=== PATIENT | male | born 1990 | race American Indian/Alaskan Native ===

== ENCOUNTER 2022-01-13 15:29 | Emergency (ER) | payer BC ==
[2022-01-13] MEDS ORDERED: SODIUM CHLORIDE 0.9% 1000 ML 1,000 ML IV ONE (17:43)
[2022-01-13 17:45] VITALS: BP 137/92
--- NOTE | 2022-01-13 18:22 | XRay Report ---
CHEST 1 VIEW 01/13/2022 5:56 PM INDICATION / CLINICAL INFORMATION: Dyspnea. COMPARISON: None available. FINDINGS: SUPPORT DEVICES: None. HEART / MEDIASTINUM: No significant abnormality. LUNGS / PLEURA: No significant pulmonary or pleural abnormality. No pneumothorax. ADDITIONAL FINDINGS: No significant additional findings. IMPRESSION: 1. No acute findings. Signer Name: Dung Hernandez MD Signed: 01/13/2022 6:18 PM Workstation Name: [id number]
[2022-01-13 19:32] LABS: Basophils % (Auto) 0.3 % (0.0-1.8); Eosinophils # (Auto) 0.2 K/mm3 (0.0-0.4); Eosinophils % (Auto) 1.9 % (0.0-4.3); Hematocrit 42.7 % (35.5-45.6); Hemoglobin 14.1 gm/dl (11.8-15.2); Lymphocytes # (Auto) 2.6 K/mm3 (1.2-5.4); Lymphocytes % (Auto) 30.4 % (13.4-35.0); Mean Corpuscular HGB Conc 33 % (32-34); Mean Corpuscular Volume 86 fl (84-94); Monocytes # (Auto) 0.8 K/mm3 (0.0-0.8); Monocytes % (Auto) 9.3 % (0.0-7.3); Platelet Count 203 K/mm3 (140-440); Red Blood Count 4.94 M/mm3 (3.65-5.03); Red Cell Distribution Width 12.8 % (13.2-15.2)
[2022-01-13 19:38] LABS: Alanine Aminotransferase 19 units/L (7-56); Albumin 4.1 g/dL (3.9-5); BUN/Creatinine Ratio 11; Blood Urea Nitrogen 12 mg/dL (9-20); Calcium 9.2 mg/dL (8.4-10.2); Hemolysis Index 28
[2022-01-13 19:48] LABS: Bilirubin,Direct < 0.2 mg/dL (0-0.2)
--- NOTE | 2022-01-13 19:53 | Cat Scan Report ---
Examination: CT of the head without contrast Clinical information: Seizure Comparison: None. Technical: Multiple axial CT images of the head were obtained without intravenous contrast. Sagittal and coronal reformats were obtained. All CTs at this facility utilize dose reduction techniques inc luding automated exposure control, iterative reconstruction and weight based dosing when appropriate to reduce patient radiation dose to as low as reasonable achievable. Findings: INTRACRANIAL CONTENTS: There is no CT evidence of acute intracranial hemorrhage or large territorial infarct. The ventricular system is normal in size and configuration. SKULL: Evaluation of the skull demonstrates postsurgical changes of the left high convexity. No acute bony abnormality is identified. ORBITS: The bilateral orbits and globes appear normal PARANASAL SINUSES / MASTOID AIR CELLS: There is partial mucosal opacification of the maxillary and et hmoid sinuses. Impression: 1. No CT evidence of acute intracranial process. Signer Name: Lizbet Sandoval MD Signed: 01/13/2022 7:48 PM Workstation Name: [id number]
[2022-01-13 19:59] LABS: Bilirubin,Urine NEG (Negative); Blood,Urine NEG (Negative); Color,Urine Yellow (Yellow); Protein,Urine <15 mg/dL mg/dL (Negative); Urobilinogen,Urine < 2.0 mg/dL (<2.0)
--- NOTE | 2022-01-13 19:59 | Emergency Department Report ---
ED Seizure HPI - General Chief Complaint: Seizure Stated Complaint: COUGH/SEIZURES/HEADACHES Time Seen by Provider: 01/13/22 17:40 Source: patient, family Mode of arrival: Ambulatory Limitations: No Limitations - History of Present Illness Initial Comments: States had 2 sz during and after coughing at about 11:30 yesterday, and 0330 this a.m. , VARGAS all day. Complaint: possible seizure, shaking -: Sudden -: second(s) Seizure History: none Place: home Possible Precipitating Event: none Associated Symptoms: denies: denies other symptoms, chest pain, confusion, diaphoresis, fever/chills, loss of appetite, malaise Treatments Prior to Arrival: none - Related Data Home Medications Medication Instructions Recorded Confirmed Last Taken No Known Home Medications [No 01/13/22 01/13/22 Unknown Reported Home Medications] Allergies Allergy/AdvReac Type Severity Reaction Status Date / Time Penicillins Allergy Unknown Verified 01/13/22 17:19 ED Review of Systems ROS: Stated complaint: COUGH/SEIZURES/HEADACHES Other details as noted in HPI Constitutional: denies: chills, fever Eyes: denies: eye pain, eye discharge, vision change ENT: denies: ear pain, throat pain Respiratory: denies: cough, shortness of breath, wheezing Cardiovascular: denies: chest pain, palpitations Endocrine: no symptoms reported Gastrointestinal: denies: abdominal pain, nausea, diarrhea Genitourinary: denies: urgency, dysuria Musculoskeletal: denies: back pain, joint swelling, arthralgia Skin: denies: rash, lesions Neurological: denies: headache, weakness, paresthesias Psychiatric: denies: anxiety, depression Hematological/Lymphatic: denies: easy bleeding, easy bruising ED Past Medical Hx - Past Medical History Previous Medical History?: No Hx Hypertension: No Hx CVA: No - Social History Smoking Status: Unknown if ever smoked Substance Use Type: None - Medications Home Medications: Home Medications Medication Instructions Recorded Confirmed Last Taken Type No Known Home Medications [No 01/13/22 01/13/22 Unknown History Reported Home Medications] ED Physical Exam - General Limitations: No Limitations General appearance: alert, in no apparent distress - Head Head exam: Present: atraumatic, normocephalic - Eye Eye exam: Present: normal appearance - ENT ENT exam: Present: mucous membranes moist - Neck Neck exam: Present: normal inspection - Respiratory Respiratory exam: Present: normal lung sounds bilaterally. Absent: respiratory distress - Cardiovascular Cardiovascular Exam: Present: regular rate, normal rhythm. Absent: systolic murmur, diastolic murmur, rubs, gallop - GI/Abdominal GI/Abdominal exam: Present: soft, normal bowel sounds - Rectal Rectal exam: Present: deferred - Extremities Exam Extremities exam: Present: normal inspection - Back Exam Back exam: Present: normal inspection - Neurological Exam Neurological exam: Present: alert, oriented X3 - Psychiatric Psychiatric exam: Present: normal affect, normal mood - Skin Skin exam: Present: warm, dry, intact, normal color. Absent: rash ED Course Vital Signs 01/13/22 01/13/22 01/13/22 17:22 17:42 17:44 Temperature 98.4 F 98.7 F Pulse Rate 99 H 86 85 Respiratory 20 25 H 20 Rate Blood Pressure 137/92 Blood Pressure 139/98 [Right] O2 Sat by Pulse 96 99 97 Oximetry - Reevaluation(s) Reevaluation #1: 01/13/22 19:57 pt is awake and lert vss no distress, head ct normal doesn;t look like seizure ED Medical Decision Making - Lab Data Result diagrams: 01/13/22 18:39 01/13/22 18:39 Critical care attestation.: If time is entered above; I have spent that time in minutes in the direct care of this critically ill patient, excluding procedure time. ED Disposition Clinical Impression: Seizure Disposition: 01 HOME / SELF CARE / HOMELESS Is pt being admited?: No Does the pt Need Aspirin: No Condition: Stable Instructions: Seizure, Adult, [id number]
[2022-01-13 20:07] LABS: Amphetamine Screen,Urine Negative; Benzodiazepines Screen,Urine Negative; Cannabinoid Screen,Urine Negative; Cocaine Screen,Urine Negative; Methadone Screen,Urine Negative; Opiate Screen,Urine Negative
--- NOTE | 2022-01-15 11:48 | Electrocardiograph Report ---
[facility] Test Date: 2022-01-13 Test Time: 19:35:11 Pat Name: SHAKIRA LAMBERT Department: Room: Gender: M Jewel Sawyer: CRISTINO : 1990 Requested By: KENNY ONEIL Order Number: [id number] Reading MD: Mason Acosta Measurements Intervals [place] Rate: 84 P: 34 SC: 192 QRS: -27 QRSD: 80 T: 30 QT: 353 QTc: 417 Interpretive Statements Sinus rhythm No previous ECG available for comparison Electronically Signed On 01-15-2022 11:48:01 EST by Mason Acosta
== END 2022-01-13 20:25 | disposition home or self-care (01) ==
LOC: ED 15:29
DX: R56.9 Unspecified convulsions (principal); R05.9 Cough, unspecified; Z88.0 Allergy status to penicillin; Z79.899 Other long term (current) drug therapy
CPT/HCPCS: 36415; 70450; 71045; 80053; 80076; 80307; 81001; 82550; 85025; 93005; 93010; 96360; 99284; J7030; 80320; Q0162; G0480